=== PATIENT | male | born 1950 | race Caucasian/White ===

== ENCOUNTER 2022-04-18 07:41 | Emergency (ER) | payer MEDICARE, MEDICAID ==
[~2022-04-18] VITALS: Ht 157.5 cm; Wt 59.8 kg
[2022-04-18 07:57] VITALS: BP 140/86
== END 2022-04-18 19:10 | disposition left against medical advice (07) ==
LOC: ER 07:42
DX: M54.59 Other low back pain (principal)
CPT/HCPCS: 99281